=== PATIENT | female | born 1970 | race Caucasian/White ===

== ENCOUNTER 2016-12-03 08:02 | Outpatient (CLI) | payer MEDICAID ==
[2016-12-03 08:48] LABS: HEMATOCRIT 17.9 % (36.0-47.0); MEAN CORPUSCULAR HEMOGLOBIN 28.4 pg (27.0-33.4); MEAN CORPUSCULAR HGB CONC 31.8 g/dL (32.0-36.0); MEAN CORPUSCULAR VOLUME 89 fl (80-97); RED CELL DISTRIBUTION WIDTH 18.2 % (11.5-14.0); WHITE BLOOD COUNT 4.3 10^3/uL (4.0-10.5)
[2016-12-03] MEDS ORDERED: ACETAMINOPHEN 325 MG TABLET PO PRN (09:10)
[2016-12-03] MEDS ORDERED: DIPHENHYDRAMINE HCL 25 MG CAPSULE PO PRN (09:10)
[2016-12-03] MEDS ORDERED: FUROSEMIDE INJ/PF 20 MG/2 ML SDV IV PRN (09:13)
[2016-12-03] MEDS ORDERED: NORMAL SALINE 1000 ML 1,000 ML IV PRN (09:13)
[2016-12-03 09:16] LABS: HEMOGLOBIN 5.7 g/dL (12.0-15.5); HGB HCT DIFFERENCE -0.8
[2016-12-06 14:29] LABS: PATH REVIEW PATHOLOGIST REVIEWED
== END 2016-12-03 10:17 | disposition home or self-care (01) ==
LOC: II 08:02 → 5TH 08:05 → II 10:17
PROVIDERS: ATTEND Specialist
DX: Z53.21 Procedure and treatment not carried out due to patient leaving prior to being seen by health care provider (principal)
CPT/HCPCS: 86900; 86901; 36415; 86850; 86880; J3490 ×2

== ENCOUNTER 2016-12-21 08:04 | Outpatient (CLI) | payer MEDICAID ==
[2016-12-21 08:48] LABS: HEMATOCRIT 19.1 % (36.0-47.0); HGB HCT DIFFERENCE -0.5; MEAN CORPUSCULAR HEMOGLOBIN 29.6 pg (27.0-33.4); MEAN CORPUSCULAR HGB CONC 32.7 g/dL (32.0-36.0); MEAN CORPUSCULAR VOLUME 90 fl (80-97); RED BLOOD COUNT 2.11 10^6/uL (3.72-5.28); RED CELL DISTRIBUTION WIDTH 20.5 % (11.5-14.0); WHITE BLOOD COUNT 4.8 10^3/uL (4.0-10.5)
[2016-12-21 08:51] LABS: HEMOGLOBIN 6.2 g/dL (12.0-15.5)
[2016-12-21] MEDS ORDERED: NORMAL SALINE 250 ML IV PRN (09:04)
[2016-12-21] MEDS ORDERED: ACETAMINOPHEN 325 MG TABLET PO PRN (09:05)
[2016-12-21] MEDS ORDERED: DIPHENHYDRAMINE HCL 25 MG CAPSULE PO PRN (09:05)
[2016-12-21] MEDS ORDERED: FUROSEMIDE INJ/PF 20 MG/2 ML SDV IV PRN (09:06)
[2016-12-21] MEDS ORDERED: FENTANYL 100 MCG/HR PATCH.TD72 TD ONE (10:00)
[2016-12-21 13:46] VITALS: BP 163/96
== END 2016-12-21 13:56 | disposition home or self-care (01) ==
LOC: II 08:04 → 5TH 08:11 → II 13:56
PROVIDERS: ATTEND Specialist
PROC: 30243N1 Transfusion of Nonautologous Red Blood Cells into Central Vein, Percutaneous Approach (ICD-10-PCS; principal; 2016-12-21)
DX: D64.9 Anemia, unspecified (principal)
CPT/HCPCS: 86900; 86901; 36415; 36430; 86850; 86922; 86920; P9016; J3490 ×2

== ENCOUNTER 2017-01-14 07:47 | Outpatient (CLI) | payer MEDICAID ==
[2017-01-14 08:19] LABS: HEMATOCRIT 17.1 % (36.0-47.0); HGB HCT DIFFERENCE 0.3; MEAN CORPUSCULAR HEMOGLOBIN 30.1 pg (27.0-33.4); MEAN CORPUSCULAR HGB CONC 33.7 g/dL (32.0-36.0); MEAN CORPUSCULAR VOLUME 89 fl (80-97); RED BLOOD COUNT 1.92 10^6/uL (3.72-5.28); WHITE BLOOD COUNT 4.5 10^3/uL (4.0-10.5)
[2017-01-14] MEDS ORDERED: DIPHENHYDRAMINE HCL 25 MG CAPSULE PO PRN (08:31)
[2017-01-14] MEDS ORDERED: ACETAMINOPHEN 325 MG TABLET PO PRN (08:31)
[2017-01-14] MEDS ORDERED: NORMAL SALINE 1000 ML 1,000 ML IV PRN (08:31)
[2017-01-14] MEDS ORDERED: FUROSEMIDE INJ/PF 20 MG/2 ML SDV IV PRN (08:32)
[2017-01-14 08:38] LABS: HEMOGLOBIN 5.8 g/dL (12.0-15.5)
[2017-01-14 13:00] VITALS: BP 132/73
== END 2017-01-14 13:03 | disposition home or self-care (01) ==
LOC: II 07:47 → 5TH 07:48 → II 13:03
PROVIDERS: ATTEND Specialist
PROC: 30243N1 Transfusion of Nonautologous Red Blood Cells into Central Vein, Percutaneous Approach (ICD-10-PCS; principal; 2017-01-14)
DX: D64.9 Anemia, unspecified (principal)
CPT/HCPCS: 86900; 86901; 36415; 36430; 86850; 86922; 86920; P9016; P9035; J3490